=== PATIENT | female | born 2000 | race Caucasian/White ===

== ENCOUNTER 2021-12-22 11:21 | Emergency (ER) | payer OTHER ==
[2021-12-22 12:58] LABS: HEMOGLOBIN 13.7 gm/dl (12.3-15.3); RED BLOOD COUNT 4.56 M/UL (4.00-5.10); WHITE BLOOD COUNT 5.9 K/UL (4.5-11.0)
[2021-12-22 13:23] LABS: BUN/CREATININE RATIO 20 (0-10)
[2021-12-22] MEDS ORDERED: ONDANSETRON ODT4 MG PO (14:43)
== END 2021-12-22 20:50 | disposition home or self-care (01) ==
LOC: ER1 11:21
PROVIDERS: Nurse Practitioner
DX: R10.9 Unspecified abdominal pain (principal); R10.813 Right lower quadrant abdominal tenderness; R11.2 Nausea with vomiting, unspecified; F17.290 Nicotine dependence, other tobacco product, uncomplicated
CPT/HCPCS: 71045; 80053; 81001; 82150; 82550; 82553; 83605; 83690; 84484; 84703; 85025; 85610; 85652; 85730; 86140; 86850; 86900; 86901; 93005; 96361; 96374; 99284; J2405; J7030; Q9967